=== PATIENT | female | born 1930 | race Caucasian/White ===

== ENCOUNTER 2016-08-29 14:14 | Emergency (ER) | payer OTHER ==
[2016-08-29 12:35] LABS: BASOPHILS 0.3 %; BASOPHILS ABSOLUTE 0.03 10/3/uL (0.0-0.16); EOSINOPHILS 0.6 %; EOSINOPHILS ABSOLUTE 0.06 10/3/uL (0.0-0.53); ER CBC TAT 0 Hrs 05 Mins; HEMATOCRIT 28.2 % (36.0-48.0); HEMOGLOBIN 9.6 g/dL (12.0-16.0); IMMATURE GRANULOCYTES 0.2 %; IMMATURE GRANULOCYTES ABSOLUTE 0.02 10/3/uL (0.0-0.11); LYMPHOCYTES 9.8 %; LYMPHOCYTES ABSOLUTE 1.04 10/3/uL (0.67-4.30); MANUAL DIFF NO %; MEAN CORPUSCULAR HEMOGLOB 31.9 pg (26.0-34.0); MEAN CORPUSCULAR VOLUME 93.7 fL (80-100); MEAN PLATELET VOLUME 9.1 fL (9.2-13.0); MONOCYTES 5.8 %; MONOCYTES ABSOLUTE 0.61 10/3/uL (0.21-1.20); NEUTROPHILS 83.3 %; NEUTROPHILS ABSOLUTE 8.81 10/3/uL (2.02-8.40); PLATELET COUNT 300 10/3/uL (150-400); RBC DISTRIBUTION WIDTH 13.5 % (12.0-16.0); RED CELL COUNT 3.01 10/6/uL (4.0-5.6); WHITE BLOOD CELLS 10.6 10/3/uL (4.5-10.5)
[2016-08-29 12:42] LABS: INTERNATIONAL NORMAL RATI 1.1 UNITS (-); PROTIME (NOT ORD) 14.1 SEC (12.0-14.5)
[2016-08-29 12:49] LABS: A/G RATIO 0.9 (0.7-1.9); ALBUMIN 3.5 G/DL (3.5-5.0); ALKALINE PHOSPHATASE 89 U/L (45-117); BUN (BLOOD UREA NITROGEN) 19 MG/DL (6-23); CHLORIDE, SERUM 95 MMOL/L (96-112); CO2 (CARBON DIOXIDE) 30 MMOL/L (24-34); CREATININE 1.02 MG/DL (0.55-1.02); GFR AFRICAN AMERICAN 58 ML/MIN (>=60); GFR NON AFRICAN AMERICAN 50 ML/MIN (>=60); GLOBULIN 3.7 G/DL (2.5-4.1); GLUCOSE, SERUM 104 MG/DL (60-99); POTASSIUM, SERUM 4.6 MMOL/L (3.5-5.3); SGOT(AST) 17 U/L (5-40); SGPT(ALT) 16 U/L (5-65); SODIUM, SERUM 131 MMOL/L (135-148); TOTAL PROTEIN 7.2 G/DL (6.0-8.5)
[~2016-08-29 14:14] MED LIST: APRES25 PO; APRES50 PO; C5 PO; COREG25 PO; CYANO1000T PO; EDARBYCLOR 40-1 EAC1 PO; ETODOLAC400 MG PO; HYDROCHLOROT12.5 MG PO; IBU-200200 MG PO; LODINE PO; PCET PO; RESTASIS OPH; SPIRIVA INH; TEKTUR150 PO; VITAMIN B-121000 MC1 SL; WELLSR150 PO
[2016-08-29] MEDS ORDERED: COZAAR100 MG PO (14:28)
[2016-08-29] MEDS ORDERED: CARDCD240 PO (14:28)
[2016-08-29] MEDS ORDERED: RYTHMOL150 MG PO (14:28)
[2016-08-29] MEDS ORDERED: SPIRIVA INH (14:29)
[2016-08-29] MEDS ORDERED: VITAMIN B-122500 MCG SL (14:29)
[2016-08-29] MEDS ORDERED: PROVHFA INH (14:30)
[2016-08-29] MEDS ORDERED: MULTIVIT/MIN PO (14:30)
[2016-08-29] MEDS ORDERED: PROBIOTIC PO (14:30)
[2016-08-29] MEDS ORDERED: ASAB PO (14:30)
[2016-08-29] MEDS ORDERED: RESTASIS OPH (14:31)
[2016-08-29] MEDS ORDERED: ELIQUIS 5 MG TAB5 MG PO (14:32)
== END 2016-08-29 15:58 | disposition home or self-care (01) ==
LOC: ER 14:14
PROVIDERS: Nurse Practitioner Family
DX: S42.211A Unspecified displaced fracture of surgical neck of right humerus, initial encounter for closed fracture (principal); E87.1 Hypo-osmolality and hyponatremia; R73.9 Hyperglycemia, unspecified; D64.9 Anemia, unspecified; J44.9 Chronic obstructive pulmonary disease, unspecified; I10 Essential (primary) hypertension; I48.91 Unspecified atrial fibrillation; Z79.82 Long term (current) use of aspirin; Z79.899 Other long term (current) drug therapy; X58.XXXA Exposure to other specified factors, initial encounter
CPT/HCPCS: 73030-RT; 80053; 85025; 85610; 93005; 93971; 99285; A9270-GY